=== PATIENT | female | born 1955 ===

== ENCOUNTER → 2021-03-16 13:11 | Outpatient (BNVA) | payer BC, SELFPAY | PROVIDERS: Referring Provider Student in an Organized Health Care Education/Training Program; Visit Provider Internal Medicine | DX: E89.0 Postprocedural hypothyroidism (principal); R79.89 Other specified abnormal findings of blood chemistry; R63.5 Abnormal weight gain; Z86.39 Personal history of other endocrine, nutritional and metabolic disease; Z09 Encounter for follow-up examination after completed treatment for conditions other than malignant neoplasm | CPT/HCPCS: 99204 ==